=== PATIENT | female | born 2000 | race Caucasian/White ===

== ENCOUNTER 2024-08-01 09:43 | Outpatient (OUT) | payer BC, OTHER, SELFPAY ==
--- NOTE | 2024-08-01 | XR_ITS ---
[facility] [place] [address] Patient Name: JENNI FROST MRN: [id number] date: 2000 Sex: F Assigned Patient Location: Current Patient Location: Accession/Order Number: [id number] Exam Date: 08/01/2024 10:27 Report Date: 08/01/2024 10:28 At the request of: TRINITY NGUYỄN MD Procedure: XR shoulder LT min 2V 3 views left shoulder plain film HISTORY: Chronic left shoulder pain COMPARISON: None ACUTE FINDINGS: None DEGENERATIVE CHANGE: Unremarkable SOFT TISSUE FINDINGS: Unremarkable JOINT EFFUSION: None POSTOP CHANGES: Clavicle plate screw fixation intact. No hardware complication. BONY MINERALIZATION: Adequate XR/XR shoulder LT min 2V IMPRESSION: Adequate hardware. No acute bony findings or significant degenerative change.. Impression dictated by: Hector Shelton M.D.08/01/2024 10:28 AM Dictation Location: [place] [address] Electronically authenticated by: [id number] Date: 08/01/2024 10:28
== END 2024-08-01 09:44 | disposition home or self-care (01) ==
PROVIDERS: Visit Provider Orthopaedic Surgery
DX: M25.512 Pain in left shoulder (principal)
CPT/HCPCS: 73030